=== PATIENT | female | born 1950 | race African-American/Black ===

== ENCOUNTER 2020-08-04 15:05 | Outpatient (CLI) | payer MEDICARE, SELFPAY ==
--- NOTE | 2020-08-04 15:12 | ECG_ITS ---
Measurements Intervals [place] Rate: 95 P: 168 NE: 203 QRS: 178 QRSD: 88 T: 144 QT: 356 QTc: 449 Interpretive Statements SINUS RHYTHM LIMB LEAD REVERSAL BORDERLINE AV CONDUCTION DELAY INCOMPLETE RIGHT BUNDLE BRANCH BLOCK LOW QRS VOLTAGE IN DIFFUSE LEADS POOR R WAVE PROGRESSION, CONSIDER ANTERIOR INFARCT BORDERLINE T WAVE ABNORMALITY- INFERIOR LEADS BASELINE ARTIFACT- I, II, III, AVR, AVL, V5-V6 ABNORMAL ECG Electronically Signed On 08-04-2020 16:16:04 CDT by Gage Metzger D.O.
[2020-08-04 16:01] LABS: Hematocrit 23.7 % (37.0-47.0); Hemoglobin 7.7 g/dL (12.0-15.0)
[2020-08-04 16:12] LABS: INR 1.1; Prothrombin Time 14.4 Seconds (11.1-14.7)
[2020-08-04 16:13] LABS: Partial Thromboplastin Time 22.4 SECONDS (22.3-36.8)
[2020-08-04 16:15] LABS: Anion Gap 6 mmol/L (8-16); Blood Urea Nitrogen 42 mg/dL (7-17); Carbon Dioxide 32 mmol/L (22-30); Chloride 100 mmol/L (98-107); Estimated Glomerular Filt Rate 7; Glucose 116 mg/dL (65-105); Potassium 4.2 mmol/L (3.4-5.0); Sodium 138 mmol/L (137-145)
== END 2020-08-04 15:06 | disposition home or self-care (01) ==
LOC: ANHSURGERY 15:15
PROVIDERS: Anesthesiology; PCP Internal Medicine; Visit Provider Obstetrics & Gynecology
DX: N95.0 Postmenopausal bleeding (principal); N28.9 Disorder of kidney and ureter, unspecified; I10 Essential (primary) hypertension; Z01.818 Encounter for other preprocedural examination; I45.9 Conduction disorder, unspecified; I45.10 Unspecified right bundle-branch block
CPT/HCPCS: 36415; 80048; 85014; 85018; 85610; 85730; 93005

== ENCOUNTER → 2020-08-05 01:07 | Outpatient (CLI) | payer MEDICARE, SELFPAY ==
[2020-08-05 20:46] LABS: SARS-CoV-2 RNA PCR Negative
== END ==
PROVIDERS: PCP Internal Medicine; Visit Provider Obstetrics & Gynecology
DX: Z01.812 Encounter for preprocedural laboratory examination (principal); Z20.822 Contact with and (suspected) exposure to COVID-19
CPT/HCPCS: C9803; U0003; U0005

== ENCOUNTER 2020-08-08 01:50 | Day surgery (SDC) | payer MEDICARE, SELFPAY ==
[2020-08-01 13:15] VITALS: BMI 26.4
--- NOTE | 2020-08-05 15:13 | PM.IMHP ---
H&P: HPI History of Present Illness Date/Time: 08/05/20 15:13 FACUNDO 1-year-old 6 para 6 admitted for hysteroscopy dilatation curettage secondary to vaginal bleeding. The urine half ago she had same thing with benign findings ultrasound showed thickened endometrium. Risks and benefits reviewed. She uses O2 bleed in the made with a hemoglobin of 7.7 but is a on peritoneal dialysis Chief Complaint: postmenopausal bleeding and anemia Review of Systems Review of Systems: All systems reviewed & are unremarkable except as noted in HPI and below PMFSH Past Medical History Medical History DVT (deep venous thrombosis) History of anticoagulant use Hypertension Multiple myeloma diagnosed 2017, remission now Osteoarthritis Pulmonary embolism Social History Social History Smoking status: Never smoker Gender identity (if verbalized by the patient): Female Spiritual care concerns: No Meds Home Medications and Allergies Home Medications Medication Instructions Recorded Confirmed Type aspirin 81 mg PO DAILY 02/20/19 08/01/20 History calcium carbonate-vitamin D3 1 cap PO DAILY 02/20/19 08/01/20 History [Calcium 600 + D(3)] dexamethasone 4 mg PO WEEKLY 02/20/19 08/01/20 History jlscrihgfmzy-Yv-pjxa-minerals 1 tablet PO DAILY 02/20/19 08/01/20 History [Multiple Vitamin, Womens] apixaban [Eliquis] 5 mg PO BID 08/01/20 08/01/20 History metoprolol succinate 25 mg PO DAILY 08/01/20 08/01/20 History midodrine 10 mg PO DAILY 08/01/20 08/01/20 History sevelamer carbonate 800 mg PO TID 08/01/20 08/01/20 History Allergies Allergy/AdvReac Type Severity Reaction Status Date / Time Sulfa (Sulfonamide Allergy Intermediate Swelling Verified 08/01/20 12:26 Antibiotics) of the Eye Exam Const: General: no acute distress Eyes: General: appearance normal, both eyes and all related structures Neck: Neck: supple and no JVD Thyroid: thyroid normal Resp: Effort & Inspection: normal respiratory effort Auscultation: clear to auscultation bilaterally Cardio: Rate: regular rate Rhythm: regular rhythm GI: Inspection: non-distended GI Palp: Yes Soft to palpation, No Tenderness to palpation present (GI) and No Guarding due to palpation present (GI) Auscultation: normal bowel sounds : General: Yes bladder normal to palpation External Female Exam: normal external appearance Speculum Exam - Vagina: normal vaginal discharge and No vaginal bleeding Speculum Exam - Cervix: nontender Bimanual exam- vagina & uterus: bladder normal to palpation and No Cervical tenderness present OB/external & speculum: No vaginal bleeding Skin: General skin exam: no rashes or lesions noted Extrem: General: normal to inspection and no edema Psych: Mental Status: mental status grossly normal Affect: normal affect Assessment and Plan Additional Plan impression: Postmenopausal bleeding and an EB Plan: Hysteroscopy/ dilatation curettage
--- NOTE | 2020-08-07 12:59 | P.PNAN_ITS ---
Anes - Initial Pre Proc Eval Procedure: Operation Date: 08/08/20 11:30 Proposed Procedures p Hysteroscopy Dilation and Curettage - Jose Daniel Sanford MD Date/Time: 08/07/20 12:59 Surgeon: Jose Daniel Sanford MD Pre Op Diagnosis: postmenopausal bleeding Patient Data Age: 70 Gender: F Height: 1.63 m Weight: 69.95 kg Allergies Allergy/AdvReac Type Severity Reaction Status Date / Time Sulfa (Sulfonamide Allergy Intermediate Swelling Verified 08/08/20 09:47 Antibiotics) of the Eye Home Medications Medication Instructions Recorded Confirmed Type aspirin 81 mg PO DAILY 02/20/19 08/08/20 History calcium carbonate-vitamin D3 1 cap PO DAILY 02/20/19 08/01/20 History [Calcium 600 + D(3)] dexamethasone 4 mg PO WEEKLY 02/20/19 08/01/20 History pwjnkzsvorda-Fx-mhsg-minerals 1 tablet PO DAILY 02/20/19 08/01/20 History [Multiple Vitamin, Womens] apixaban [Eliquis] 5 mg PO BID 08/01/20 08/08/20 History metoprolol succinate 25 mg PO DAILY 08/01/20 08/08/20 History midodrine 10 mg PO DAILY 08/01/20 08/01/20 History sevelamer carbonate 800 mg PO TID 08/01/20 08/08/20 History Patient hx anesthesia problems: none Family hx anesthesia problems: none [facility] Past Medical History Medical History (Updated 08/07/20 @ 12:59 by Jaylen Campbell DO) Dialysis patient DVT (deep venous thrombosis) History of anticoagulant use Hypertension Multiple myeloma diagnosed 2017, remission now Osteoarthritis Pulmonary embolism TIA (transient ischemic attack) Social History Social History Smoking status: Never smoker Living arrangements: with family Gender identity (if verbalized by the patient): Female Spiritual care concerns: No Anes - Eval Final PreProcedure Day of Procedure 08/07/20 12:59 Patient weight: overweight Heart: regular rate and rhythm Lungs: clear to auscultation and normal air movement Airway: Mallampati scale class II Neurological: alert and oriented Last oral intake: >/= 8 hours ASA classification: IV Emergent: no Anesthetic plan: proceed Anesthesia type and monitoring: general GIVS and standard monitoring Informed Consent: The patient's anesthetic plan and its attendant risks and benefits were discussed with the patient/family/POA. Questions were solicited and answers provided to the satisfaction of the patient/family/POA.
[2020-08-08] MEDS: ACETAMINOPHEN 500 MG TABLET 1000 MG PO (10:19)
[2020-08-08] MEDS: SODIUM CHLORIDE 0.9% IV 500 ML 30 ML IV CONT (10:19)
[2020-08-08 10:27] VITALS: BP 116/72; PULSE 80; RESP 16; TEMP 36.9; O2SAT 100
[2020-08-08 10:29] LABS: Anion Gap 6 mmol/L (8-16); Blood Urea Nitrogen 35 mg/dL (7-17); Calcium 8.8 mg/dL (8.4-10.2); Carbon Dioxide 33 mmol/L (22-30); Chloride 97 mmol/L (98-107); Estimated CRCL calculation 7 ml/min; Estimated Glomerular Filt Rate 8; Glucose 85 mg/dL (65-105); Potassium 3.5 mmol/L (3.4-5.0); Sodium 136 mmol/L (137-145)
--- NOTE | 2020-08-08 10:59 | WPDHPUPDATE1 ---
History and Physical Update Update Date/Time: 08/08/20 10:59 History and Physical has been reviewed, including an updated exam of the patient. There are NO changes in the patient's condition. Risks, benefits, and alternatives have been discussed and questions answered. Patient agrees to proceed with procedure.
[2020-08-08 11:36] VITALS: BP 94/57; PULSE 68; RESP 14; O2SAT 93
--- NOTE | 2020-08-08 11:38 | PM.PROC ---
Procedure Note - Detailed Date of procedure: 08/08/20 Pre-op diagnosis: postmenopausal bleeding Surgeon: Jose Daniel Sanford MD Postop diagnosis: Postmenopausal bleeding/polyp Procedure: Hysteroscopy/dilatation curettage/polypectomy Anesthesia: IV sedation local Findings: Small benign-appearing endometrial polyps Complications: None EBL: 5cc Description of procedure: The patient was prepped and draped in the normal sterile fashion placed in the dorsal lithotomy position under excellent IV sedation weighted speculum placed in posterior fornix of vagina. Anterior lip of the cervix was grasped with a single-tooth tenaculum and 2.5cc of 1% xylocaine anesthesia placed at 2, 4, 8, 10:00 a.m. of the cervix. Uterus sounded to7.5cm. Serial dilatation with fragmented dilators performed. The 5mm visualizing hysteroscope was inserted using normal saline as visualizing medium. Two small polyps were seen in photo documentation undertaken. Polyp forceps were then passed and these were removed piecemeal. Uterus was then scraped over the entire 360? until a good grating sound was heard. When no further tissue could be removed the instruments removed. All sponge, needle, instrument counts were correct. Inflow and outflow were equal. Blood loss was estimated at5cc there were no immediate complications noted
[2020-08-08 12:00] VITALS: BP 98/70; PULSE 65; RESP 20
[2020-08-08 12:30] VITALS: BP 107/76; PULSE 67; RESP 20
[2020-08-08 13:00] VITALS: BP 102/71; PULSE 60; RESP 20
== END 2020-08-08 13:04 | disposition home or self-care (01) ==
PROVIDERS: Anesthesiology; PCP Internal Medicine; Visit Provider Obstetrics & Gynecology
PROC: 0U5B8ZZ Destruction of Endometrium, Via Natural or Artificial Opening Endoscopic (ICD-10-PCS; CPT 58563; principal; 2020-08-08 11:30)
DX: N95.0 Postmenopausal bleeding (principal); N84.0 Polyp of corpus uteri; N85.8 Other specified noninflammatory disorders of uterus; Z86.718 Personal history of other venous thrombosis and embolism; Z79.01 Long term (current) use of anticoagulants; Z79.82 Long term (current) use of aspirin; M19.90 Unspecified osteoarthritis, unspecified site; I10 Essential (primary) hypertension; Z86.711 Personal history of pulmonary embolism; Z86.73 Personal history of transient ischemic attack (TIA), and cerebral infarction without residual deficits; Z85.79 Personal history of other malignant neoplasms of lymphoid, hematopoietic and related tissues
CPT/HCPCS: 58558; 36415; 80048; 88305; A9270; J2704; J7030; J7040